=== PATIENT | female | born 1990 | race Caucasian/White ===

== ENCOUNTER 2021-06-09 12:28 | Emergency (ER) | payer OTHER, MEDICAID ==
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
[2021-06-09 13:08] LABS: BARBITURATE SCREEN,URINE NEGATIVE (NEGATIVE); BENZODIAZEPINES SCREEN,URINE NEGATIVE (NEGATIVE); METHAMPHETAMINE SCREEN, URINE NEGATIVE (NEGATIVE)
[2021-06-09 13:10] LABS: BUPRENORPHINE SCREEN,URINE NEGATIVE (NEGATIVE); THC SCREEN,URINE 50 NG/ML POSITIVE (NEGATIVE)
[2021-06-09 13:23] LABS: PTT,PARTIAL THROMBOPLSTIN TIME 22.6 SEC (25.6-32.8)
[2021-06-09 13:25] LABS: CHLORIDE,CL 104 mmol/L (98-107); SODIUM,NA 138 mmol/L (136-145)
[2021-06-09 13:26] LABS: ANION GAP 13.1 mmol/L (5-15)
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
[2021-06-09] MEDS: Acetaminophen 325 MG Tab PO ONE (13:40)
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
[2021-06-09] MEDS: traMADol 50 MG Tab PO ONE (14:07)
== END 2021-06-09 14:20 | disposition home or self-care (01) ==
LOC: VM.ED 12:28
DX: R51.9 Headache, unspecified (principal); G89.11 Acute pain due to trauma; V49.40XA Driver injured in collision with unspecified motor vehicles in traffic accident, initial encounter; Y92.410 Unspecified street and highway as the place of occurrence of the external cause
CPT/HCPCS: 36415; 70450; 71045; 72125; 72170; 80053; 80305-QW; 81001; 81025; 85025; 85610; 85730; 99283; 99284-25; A9270-GY